=== PATIENT | female | born 1990 | race Two or more races ===

== ENCOUNTER 2019-02-19 22:18 | Emergency (ER) | payer OTHER ==
[~2019-02-19] VITALS: Ht 152.4 cm; Wt 65.8 kg
[2019-02-19 22:34] VITALS: BP 106/76
[2019-02-19 22:56] LABS: Urine Bacteria MANY /hpf (None Seen); Urine Blood 1+ /uL (Negative); Urine Mucus FEW (None Seen); Urine Specific Gravity 1.024 (1.001-1.035); Urine WBC 447 /hpf (0 - 5)
[2019-02-20] MEDS ORDERED: cefTRIAXone SOD 1,000 MG VL IM ONE (00:30)
== END 2019-02-20 00:57 | disposition home or self-care (01) ==
LOC: ER 22:24
DX: N39.0 Urinary tract infection, site not specified (principal)
CPT/HCPCS: 81001; 96372; 99283; J0696

== ENCOUNTER 2019-05-23 09:36 | Emergency (ER) | payer OTHER ==
[~2019-05-23] VITALS: Ht 172.7 cm; Wt 68.0 kg
[2019-05-23 10:21] LABS: Urine Bacteria FEW /hpf (None Seen); Urine Blood Negative /uL (Negative); Urine Specific Gravity 1.014 (1.001-1.035); Urine WBC <1 /hpf (0 - 5)
[2019-05-23 10:22] LABS: Basophils # (auto) 0 uL; Basophils % (auto) 0.6 % (0.0-2.0); Eosinophils # (auto) 0.1 uL; Eosinophils % (auto) 1.4 % (0.0-7.0); Hematocrit 40.2 % (36.0-46.0); Hemoglobin 13.7 g/dL (12.2-16.2); Lymphocytes # (auto) 2.5 uL; Lymphocytes % (auto) 33.5 % (10.0-50.0); Mean Corpuscular Hemoglobin 31.3 pg (28.0-32.0); Mean Corpuscular Hgb Conc. 34.1 g/dL (32.0-36.0); Mean Corpuscular Volume 91.9 fL (80.0-100.0); Monocytes # (auto) 0.4 uL; Monocytes % (auto) 4.8 % (0.0-12.0); Neutrophils # (auto) 4.4 uL; Neutrophils % (auto) 59.7 % (37.0-80.0); Platelet Count (auto) 279 10^3/uL (140-450); Red Blood Cells 4.37 10^6/uL (4.0-5.20); Red Cell Distribution Width 12.6 % (11.8-14.3); White Blood Cell 7.4 10^3/uL (4.4-10.8)
[2019-05-23 13:06] VITALS: BP 105/65
== END 2019-05-23 13:15 | disposition home or self-care (01) ==
LOC: ER 09:38
DX: O46.91 Antepartum hemorrhage, unspecified, first trimester (principal); Z3A.08 8 weeks gestation of pregnancy
CPT/HCPCS: 36415; 81001; 84702; 85025; 86901

== ENCOUNTER 2021-05-28 18:43 | Emergency (ER) | payer OTHER ==
[~2021-05-28] VITALS: Ht 152.4 cm; Wt 68.0 kg
[2021-05-28 18:46] VITALS: BP 103/67
== END 2021-05-29 07:29 | disposition left against medical advice (07) ==
LOC: ER 18:43
DX: U07.1 COVID-19 (principal); Z53.21 Procedure and treatment not carried out due to patient leaving prior to being seen by health care provider
CPT/HCPCS: 36415; 71045; 87426